=== PATIENT | male | born 1950 | race African-American/Black ===

== ENCOUNTER 2017-07-20 10:59 | Emergency (ER) | payer SELFPAY ==
[~2017-07-20] VITALS: Ht 172.7 cm; Wt 70.0 kg
[2017-07-20 18:35] VITALS: BP 170/74
== END 2017-07-20 18:43 | disposition home or self-care (01) ==
LOC: ER 11:20
DX: S63.255A Unspecified dislocation of left ring finger, initial encounter (principal); I10 Essential (primary) hypertension; W19.XXXA Unspecified fall, initial encounter; Y93.89 Activity, other specified; Y92.89 Other specified places as the place of occurrence of the external cause; Y99.8 Other external cause status; Z86.73 Personal history of transient ischemic attack (TIA), and cerebral infarction without residual deficits
CPT/HCPCS: 26770; 73130; 73140; 99284

== ENCOUNTER 2019-01-19 20:27 | Emergency (ER) | payer MEDICARE, OTHER ==
[~2019-01-19] VITALS: Ht 182.9 cm; Wt 82.0 kg
[~2019-01-19 20:27] MED LIST: CHOL100034 MT; CILO100T MT; CLOP75TA33 MT; LYR25 MT; SIME80TA15 MT
[2019-01-19] MEDS ORDERED: SODIUM CHLORIDE 0.9% 1,000 ML IV ONE (23:12)
[2019-01-19 23:43] LABS: BASOPHILS % 0.9 % (0.0-2.0); EOSINOPHILS % 0.3 % (0.0-5.0); HEMATOCRIT. 40.3 % (42.0-52.0); HEMOGLOBIN. 13.7 g/dL (14.0-18.0); LYMPHOCYTES % 10.5 % (20.0-50.0); MEAN CORPUSCULAR HEMOGLOBIN 29.5 pg (28.0-32.0); MEAN CORPUSCULAR VOLUME 87.1 fL (80.0-94.0); MEAN PLATELET VOLUME 7.3 fl (7.4-10.4); MONOCYTES % 6.1 % (2.0-8.0); NEUTROPHILS % 82.2 % (40.0-76.0); PLATELET 235 x1000/uL (130-400); RED BLOOD CELL COUNT 4.63 mill/uL (4.7-6.1); RED CELL DISTRIBUTION WIDTH 16.1 % (11.6-14.6)
[2019-01-19 23:51] LABS: CHLORIDE 108 mEq/L (98-107)
[2019-01-19 23:55] LABS: ETHANOL BLOOD < 10 mg/dL
[2019-01-20 02:37] LABS: CLARITY URINE CLEAR (CLEAR); COLOR URINE YELLOW (YELLOW); KETONES URINE TRACE (NEGATIVE); LEUKOCYTE ESTERASE URINE NEGATIVE (NEGATIVE); NITRITE URINE NEGATIVE (NEGATIVE); OCCULT BLOOD URINE TRACE (NEGATIVE); PROTEIN URINE 1+ (NEGATIVE); UROBILINOGEN URINE 0.2 E.U./dL (0.2-1.0)
[2019-01-20 02:52] LABS: *AMPHETAMINES SCREEN URINE NEGATIVE (NEGATIVE); *BARBITURATES SCREEN URINE NEGATIVE (NEGATIVE); *BENZODIAZEPINES SCREEN URINE NEGATIVE (NEGATIVE); *COCAINE SCREEN URINE PRESUMTIVE POSITIVE (NEGATIVE); CANNABINOID URINE SCREEN NEGATIVE (NEGATIVE); METHADONE URINE SCREEN NEGATIVE (NEGATIVE); OPIATES URINE SCREEN PRESUMTIVE POSITIVE (NEGATIVE); PHENCYCLIDINE URINE SCREEN NEGATIVE (NEGATIVE)
[2019-01-20 03:33] VITALS: BP 154/80
== END 2019-01-20 03:37 | disposition home or self-care (01) ==
LOC: ER 20:27
DX: F14.188 Cocaine abuse with other cocaine-induced disorder (principal); F19.188 Other psychoactive substance abuse with other psychoactive substance-induced disorder; F11.188 Opioid abuse with other opioid-induced disorder; I10 Essential (primary) hypertension; I69.354 Hemiplegia and hemiparesis following cerebral infarction affecting left non-dominant side; Z98.1 Arthrodesis status
CPT/HCPCS: 36415; 70450; 80053; 80305; 80307; 80320; 80329; 81003; 82140; 82962; 84443; 85025; 93005; 96360; 96361; 99284; J7030; G0480

== ENCOUNTER 2019-09-16 21:31 | Inpatient (IN) | payer MEDICARE, MEDICAID ==
[~2019-09-16] VITALS: Ht 170.2 cm; Wt 55.8 kg
[2019-09-16] MEDS ORDERED: LORAZEPAM 1MG TABLET PO ONE ×2 (21:45→22:30)
[2019-09-16] MEDS ORDERED: ASPIRIN 81MG TABLET PO ONE (21:45)
[2019-09-16 23:19] LABS: BASOPHILS % 0.6 % (0.0-2.0); EOSINOPHILS % 1.5 % (0.0-5.0); HEMATOCRIT. 36.5 % (42.0-52.0); HEMOGLOBIN. 12.1 g/dL (14.0-18.0); LYMPHOCYTES % 13.7 % (20.0-50.0); MEAN CORPUSCULAR HEMOGLOBIN 28.9 pg (28.0-32.0); MEAN CORPUSCULAR VOLUME 86.9 fL (80.0-94.0); MEAN PLATELET VOLUME 7.5 fl (7.4-10.4); MONOCYTES % 8.1 % (2.0-8.0); NEUTROPHILS % 76.1 % (40.0-76.0); PLATELET 265 x1000/uL (130-400); RED CELL DISTRIBUTION WIDTH 15.2 % (11.6-14.6)
[2019-09-16 23:26] LABS: CHLORIDE 106 mEq/L (98-107)
[2019-09-16 23:30] LABS: ETHANOL BLOOD < 10 mg/dL
[2019-09-17] MEDS ORDERED: NITROGLYCERIN 0.4MG TABLET SL SL ONE
[2019-09-17 00:04] LABS: *AMPHETAMINES SCREEN URINE NEGATIVE (NEGATIVE); *BARBITURATES SCREEN URINE NEGATIVE (NEGATIVE); *BENZODIAZEPINES SCREEN URINE NEGATIVE (NEGATIVE); *COCAINE SCREEN URINE PRESUMTIVE POSITIVE (NEGATIVE); METHADONE URINE SCREEN NEGATIVE (NEGATIVE); OPIATES URINE SCREEN PRESUMTIVE POSITIVE (NEGATIVE)
[2019-09-17 00:05] LABS: CANNABINOID URINE SCREEN NEGATIVE (NEGATIVE); PHENCYCLIDINE URINE SCREEN NEGATIVE (NEGATIVE)
[2019-09-17] MEDS ORDERED: NALOXONE HCL 0.4 MG/ML 1ML VIAL IV SCH (08:30)
[2019-09-17] MEDS ORDERED: SODIUM CHLORIDE 0.9% 500 ML IV ONE (09:34)
[2019-09-17] MEDS ORDERED: IPRATROPIUM/ALBUTEROL 0.5-3(2.5)MG/3ML NEB HHN PRN (09:45)
[2019-09-17] MEDS ORDERED: HYDRALAZINE 20MG/ML VIAL IV ONE (09:45)
[2019-09-17] MEDS ORDERED: NALOXONE HCL 0.4 MG/ML 1ML VIAL IV PRN (09:45)
[2019-09-17] MEDS ORDERED: ACETAMINOPHEN 325MG TABLET PO PRN (09:45)
[2019-09-17] MEDS ORDERED: ONDANSETRON HCL 4MG/2ML INJ IV PRN (09:45)
[2019-09-17 11:02] LABS: BG BASE EXCESS 0.7 mmol/L (-2.0-2.0); BG CARBOXYHEMOGLOBIN 1.3 % (0.5-1.5); BG FRACTION INSPIRED OXYGEN 21; BG HCO3 ACT 22.4 mmol/L (22.0-26.0); BG METHEMOGLOBIN 0.3 % (0.0-1.5); BG OXYHEMOGLOBIN 95.4 % (94.0-97.0); BG PCO2 28.4 mmHg (35.0-45.0); BG PH 7.514 (7.350-7.450); BG PO2 82.4 mmHg (75.0-100.0); BG SAMPLE SITE RIGHT RADIAL; BG TOTAL HEMOGLOBIN 14.6 g/dL (12.0-18.0); BG VENT MODE ROOM AIR
[2019-09-17] MEDS: AMLODIPINE 5MG TABLET PO SCH ×2 (12:09→20:52)
[2019-09-17] MEDS: LOSARTAN POTASSIUM 25 MG TABLET PO SCH (12:09)
[2019-09-17] MEDS: CLONIDINE 0.1MG TABLET PO PRN (12:46)
[2019-09-17] MEDS: HYDRALAZINE 20MG/ML VIAL IV PRN ×2 (14:08→18:40)
[2019-09-17 14:46] LABS: LDL CHOLESTEROL 64 mg/dL (5-100); TOTAL IRON BINDING CAPACITY 320 ug/dL (250-450)
[2019-09-17 14:48] LABS: HDL CHOLESTEROL 56 mg/dL (40-59)
[2019-09-17 15:55] VITALS: BP 191/92
[2019-09-17 18:02] VITALS: BP 169/89
[2019-09-17 20:00] VITALS: BP 179/90
[2019-09-17 22:00] VITALS: BP 168/93
[2019-09-17 23:53] VITALS: BP 171/90
[2019-09-18] VITALS (11 sets, daily range): BP systolic 166–192; BP diastolic 74–121
[2019-09-18] MEDS: HYDRALAZINE 20MG/ML VIAL IV PRN ×2 (00:54→10:28)
[2019-09-18] MEDS: CLONIDINE 0.1MG TABLET PO PRN (06:17)
[2019-09-18] MEDS: AMLODIPINE 5MG TABLET PO SCH ×2 (08:16→20:42)
[2019-09-18] MEDS: LOSARTAN POTASSIUM 25 MG TABLET PO SCH (08:16)
[2019-09-18] MEDS: CLOPIDOGREL 75MG TABLET PO SCH (08:16)
[2019-09-18 09:40] LABS: BASOPHILS % 0.2 % (0.0-2.0); HEMOGLOBIN. 15.8 g/dL (14.0-18.0); LYMPHOCYTES % 7.7 % (20.0-50.0); MEAN CORPUSCULAR HEMOGLOBIN 28.8 pg (28.0-32.0); MEAN CORPUSCULAR VOLUME 87.2 fL (80.0-94.0); MEAN PLATELET VOLUME 8.3 fl (7.4-10.4); MONOCYTES % 7.2 % (2.0-8.0); NEUTROPHILS % 84.9 % (40.0-76.0); PLATELET 406 x1000/uL (130-400); RED CELL DISTRIBUTION WIDTH 15.2 % (11.6-14.6)
[2019-09-18 09:58] LABS: CHLORIDE 103 mEq/L (98-107)
[2019-09-18] MEDS: HYDRALAZINE HCL 25MG TABLET PO SCH ×2 (13:28→21:37)
[2019-09-18] MEDS: IRON SUCROSE COMPLEX 100 MG/5 ML ML IV SCH (13:31)
[2019-09-18] MEDS ORDERED: POTASSIUM CHLORIDE 20MEQ TABLET SR PO NR (19:30)
[2019-09-19] VITALS (9 sets, daily range): BP systolic 155–178; BP diastolic 67–98
[2019-09-19] MEDS: HYDRALAZINE 20MG/ML VIAL IV PRN (00:07)
[2019-09-19] MEDS: HYDRALAZINE HCL 25MG TABLET PO SCH (05:17)
[2019-09-19 07:00] LABS: HEMATOCRIT. 46.1 % (42.0-52.0); HEMOGLOBIN. 15.5 g/dL (14.0-18.0); MEAN CORPUSCULAR HEMOGLOBIN 29.3 pg (28.0-32.0); MEAN CORPUSCULAR VOLUME 87.3 fL (80.0-94.0); MEAN PLATELET VOLUME 7.8 fl (7.4-10.4); PLATELET 379 x1000/uL (130-400); RED BLOOD CELL COUNT 5.28 mill/uL (4.7-6.1); RED CELL DISTRIBUTION WIDTH 15.3 % (11.6-14.6)
[2019-09-19 08:03] LABS: CHLORIDE 104 mEq/L (98-107)
[2019-09-19] MEDS ORDERED: LOSARTAN POTASSIUM 50 MG TABLET PO SCH (09:00)
[2019-09-19] MEDS: CLOPIDOGREL 75MG TABLET PO SCH (09:14)
[2019-09-19] MEDS: AMLODIPINE 5MG TABLET PO SCH (09:14)
[2019-09-19] MEDS: IRON SUCROSE COMPLEX 100 MG/5 ML ML IV SCH (09:14)
[2019-09-19 11:26] LABS: PLATELET ESTIMATE NORMAL
[2019-09-19] MEDS ORDERED: HYDR-4135 PO (13:47)
[2019-09-19] MEDS ORDERED: AMLO5TAB88 PO (13:47)
[2019-09-19] MEDS ORDERED: LOSA100T3 PO (13:47)
[2019-09-19] MEDS ORDERED: HYDRALAZINE HCL 50MG TABLET PO SCH (14:00)
[2019-09-20] MEDS ORDERED: LOSARTAN POTASSIUM 100 MG TABLET PO SCH (09:00)
== END 2019-09-19 15:41 | disposition home or self-care (01) | DRG 917 ==
LOC: ER 21:31 → 3WST 09-17 00:17 → EDBEDREQ 09-17 00:23 → EDBEDREQSVC 09-17 10:10 → EDBEDREQ 09-17 14:35 → ENRESERV 09-17 14:51
PROVIDERS: ADMIT Internal Medicine; ATTEND Internal Medicine
DX: T40.5X1A Poisoning by cocaine, accidental (unintentional), initial encounter (principal); G92 Toxic encephalopathy; I16.1 Hypertensive emergency; R94.31 Abnormal electrocardiogram [ECG] [EKG]; F14.129 Cocaine abuse with intoxication, unspecified; J44.9 Chronic obstructive pulmonary disease, unspecified; D64.9 Anemia, unspecified; E11.9 Type 2 diabetes mellitus without complications; I10 Essential (primary) hypertension; D72.821 Monocytosis (symptomatic); D72.810 Lymphocytopenia; F11.10 Opioid abuse, uncomplicated; R19.7 Diarrhea, unspecified; T40.601A Poisoning by unspecified narcotics, accidental (unintentional), initial encounter; Z72.0 Tobacco use; Z86.73 Personal history of transient ischemic attack (TIA), and cerebral infarction without residual deficits; Z79.899 Other long term (current) drug therapy; Z72.89 Other problems related to lifestyle; Y92.89 Other specified places as the place of occurrence of the external cause; Z79.84 Long term (current) use of oral hypoglycemic drugs
CPT/HCPCS: 36415; 36600; 71045; 80048; 80053; 80061; 80305; 80320; 82375; 82728; 82805; 83036; 83540; 83550; 83735; 83880; 84484; 85025; 87493; 93005; 93306; 97116; 97162; 99285; J0360; J2310; J2405; G0480

== ENCOUNTER 2021-08-23 07:27 | Emergency (ER) | payer MEDICAID, MEDICARE, OTHER ==
[~2021-08-23] VITALS: Ht 172.7 cm; Wt 75.0 kg
[~2021-08-23 07:27] MED LIST changes: +AMLO5TAB88 PO; +HYDR-4135 PO; +LOSA100T3 PO
[2021-08-23 07:31] VITALS: BP 150/84
[2021-08-23 10:42] LABS: BASOPHILS % 0.2 % (0.0-2.0); EOSINOPHILS % 0.3 % (0.0-5.0); HEMATOCRIT. 38.4 % (42.0-52.0); LYMPHOCYTES % 8.6 % (20.0-50.0); MEAN CORPUSCULAR VOLUME 88.5 fL (80.0-94.0); MEAN PLATELET VOLUME 7.4 fl (7.4-10.4); MONOCYTES % 7.1 % (2.0-8.0); NEUTROPHILS % 83.8 % (40.0-76.0); PLATELET 312 x1000/uL (130-400); RED BLOOD CELL COUNT 4.34 mill/uL (4.7-6.1); RED CELL DISTRIBUTION WIDTH 14.3 % (11.6-14.6)
[2021-08-23 10:51] LABS: CHLORIDE 104 mEq/L (98-107)
[2021-08-23 10:59] LABS: ETHANOL BLOOD < 10 mg/dL
== END 2021-08-23 11:14 | disposition home or self-care (01) ==
LOC: ER 07:27
DX: R41.82 Altered mental status, unspecified (principal); I10 Essential (primary) hypertension; Z86.73 Personal history of transient ischemic attack (TIA), and cerebral infarction without residual deficits; Z79.899 Other long term (current) drug therapy
CPT/HCPCS: 36415; 80053; 80320; 85025; 99283; G0480

== ENCOUNTER 2023-12-14 11:52 | Emergency (ER) | payer OTHER ==
[~2023-12-14] VITALS: Ht 177.8 cm; Wt 81.0 kg
[~2023-12-14 11:52] MED LIST changes: -CILO100T MT; +CILO100T3 MT; -HYDR-4135 PO; +HYDR50TA39 PO; +LOSA-415 PO; -LOSA100T3 PO
[2023-12-14 11:56] VITALS: TEMP 98; O2SAT 98
[2023-12-14 12:44] LABS: BASOPHILS % 0.2 % (0.0-2.0); EOSINOPHILS % 2.2 % (0.0-5.0); HEMATOCRIT. 43.9 % (42.0-52.0); HEMOGLOBIN. 14.4 g/dL (14.0-18.0); LYMPHOCYTES % 16.2 % (20.0-50.0); MEAN CORPUSCULAR HEMOGLOBIN 30.6 pg (28.0-32.0); MEAN CORPUSCULAR HGB CONC 32.9 g/dL (31.0-37.0); MEAN PLATELET VOLUME 7.8 fl (7.4-10.4); MONOCYTES % 8.8 % (2.0-8.0); NEUTROPHILS % 72.6 % (40.0-76.0); PLATELET 213 x1000/uL (130-400); RED BLOOD CELL COUNT 4.72 mill/uL (4.7-6.1); RED CELL DISTRIBUTION WIDTH 14.5 % (11.6-14.6); WHITE BLOOD COUNT 4.4 x1000/uL (4.5-11.0)
[2023-12-14 13:03] LABS: CARBON DIOXIDE 30 mEq/L (21-32); CHLORIDE 106 mEq/L (98-107); POTASSIUM 4.5 mEq/L (3.5-5.1); SODIUM 140 mEq/L (136-145)
[2023-12-14 13:04] LABS: CALCIUM 10.1 mg/dL (8.7-10.4)
[2023-12-14 13:08] LABS: CREATININE 0.9 mg/dL (0.6-1.3); TROPONIN I HIGH SENSITIVITY 12 ng/L (3.0-53)
[2023-12-14 13:09] LABS: GLUCOSE 84 mg/dL (70-105); UREA NITROGEN BLOOD 12 mg/dL (9-23)
[2023-12-14 13:11] LABS: CLARITY URINE CLEAR (CLEAR); COLOR URINE YELLOW (YELLOW); GLUCOSE URINE NEGATIVE (NEGATIVE); KETONES URINE NEGATIVE (NEGATIVE); LEUKOCYTE ESTERASE URINE 1+ (NEGATIVE); NITRITE URINE NEGATIVE (NEGATIVE); OCCULT BLOOD URINE NEGATIVE (NEGATIVE); PROTEIN URINE NEGATIVE (NEGATIVE); UROBILINOGEN URINE 0.2 E.U./dL (0.2-1.0)
[2023-12-14 14:21] LABS: SQUAMOUS EPITHELIAL CELL URINE RARE /lpf (RARE/1+)
[2023-12-14 14:23] LABS: RBC URINE 0-2 /hpf (0-2)
[2023-12-14 14:24] LABS: BACTERIA URINE NONE SEEN; MUCUS URINE TRACE /lpf (NONE/TRACE); TRICHOMONAS URINE FEW
[2023-12-14] MEDS: METRONIDAZOLE 500MG TABLET PO SCH (15:32)
[2023-12-14 16:35] VITALS: BP 148/70; PULSE 68; RESP 15
[2023-12-15 09:12] LABS: *AMPHETAMINES SCREEN URINE NEGATIVE (NEGATIVE); *BENZODIAZEPINES SCREEN URINE NEGATIVE (NEGATIVE)
[2023-12-15 09:13] LABS: *BARBITURATES SCREEN URINE NEGATIVE (NEGATIVE); *COCAINE SCREEN URINE PRESUMPTIVE POSITIVE (NEGATIVE); CANNABINOID URINE SCREEN NEGATIVE (NEGATIVE); ECSTASY MDMA SCREEN URINE NEGATIVE (NEGATIVE); METHADONE URINE SCREEN NEGATIVE (NEGATIVE); OPIATES URINE SCREEN PRESUMPTIVE POSITIVE (NEGATIVE); PHENCYCLIDINE URINE SCREEN NEGATIVE (NEGATIVE)
== END 2023-12-14 16:36 | disposition home or self-care (01) ==
LOC: ER 11:52
DX: A59.9 Trichomoniasis, unspecified (principal); F14.10 Cocaine abuse, uncomplicated; I10 Essential (primary) hypertension; Z86.73 Personal history of transient ischemic attack (TIA), and cerebral infarction without residual deficits
CPT/HCPCS: 36415; 80048; 80305; 81003; 84484; 85025; 93005; 99284

== ENCOUNTER 2024-01-01 08:43 | Emergency (ER) | payer OTHER ==
[~2024-01-01] VITALS: Ht 172.7 cm; Wt 77.0 kg
[2024-01-01 08:53] VITALS: O2SAT 96
[2024-01-01 12:31] VITALS: BP 128/81; PULSE 71; RESP 14; TEMP 36.66960; O2SAT 98
== END 2024-01-01 12:30 | disposition home or self-care (01) ==
LOC: ER 08:43
DX: J06.9 Acute upper respiratory infection, unspecified (principal); I10 Essential (primary) hypertension; Z86.73 Personal history of transient ischemic attack (TIA), and cerebral infarction without residual deficits; Z98.890 Other specified postprocedural states; F15.90 Other stimulant use, unspecified, uncomplicated
CPT/HCPCS: 87070; 87430; 99283